=== PATIENT | male | born 1985 | race Hispanic/Latino ===

== ENCOUNTER 2018-07-06 05:17 | Emergency (ER) | payer OTHER ==
[2018-07-06 05:36] VITALS: TEMP 96.4; O2SAT 98
--- NOTE | 2018-07-06 06:44 | ED PDOC ---
HPI: Wound Care - HPI Time Seen by Provider: 07/06/18 05:25 Chief Complaint (Nursing): ENT Problem Chief Complaint (Provider): Wound Care History Per: Patient Exam Limitations: no limitations Onset/Duration Of Symptoms: Days Current Symptoms Are (Timing): Still Present Additional History Per: Family () Additional Complaint(s): 32 year old male presents to the ED for an evaluation of blood clot in the right nostril onset yesterday. Patient had papillomas removed and there is a straw placed in the nostril. He had an appointment to follow up with the surgeon. Also reports of discomfort prompting for an ED visit. Otherwise denies, chest pain, fever, chills or cough. PMD: Non [facility] Provider Past Medical History Reviewed: Historical Data, Nursing Documentation, Vital Signs Vital Signs: Last Vital Signs Temp 96.4 F L 07/06/18 05:31 Pulse 100 H 07/06/18 05:31 Resp 18 07/06/18 05:31 BP 162/100 H 07/06/18 05:31 Pulse Ox 98 07/06/18 05:31 - Medical History PMH: No Chronic Diseases - Surgical History Other surgeries: nasal surgery to remove papillomas on 07/02/2018 - Family History Family History: States: Unknown Family Hx - Social History Current smoker - smoking cessation education provided: No Alcohol: Social Drugs: Denies - Allergies Allergies/Adverse Reactions: Allergies Allergy/AdvReac Type Severity Reaction Status Date / Time No Known Allergies Allergy Verified 07/06/18 05:31 Review of Systems ROS Statement: Except As Marked, All Systems Reviewed And Found Negative Constitutional: Negative for: Fever, Chills ENT: Positive for: Nose Discharge Respiratory: Negative for: Cough, Shortness of Breath Physical Exam - Physical Exam Appears: Positive for: Well, Non-toxic, No Acute Distress Head Exam: Positive for: ATRAUMATIC, NORMAL INSPECTION, NORMOCEPHALIC Skin: Positive for: Normal Color, Warm, Dry ENT: Positive for: Nasal Congestion. Negative for: Normal ENT Inspection (pt wiht large clot exuding from the left nostril. no active bleeding. slight ooze from the clot itself. no acting dc form the wound.), Tonsillar Swelling Neck: Positive for: Normal Cardiovascular/Chest: Positive for: Regular Rate, Rhythm Respiratory: Positive for: Normal Breath Sounds Gastrointestinal/Abdominal: Positive for: Normal Exam Back: Positive for: Normal Inspection Extremity: Positive for: Normal ROM Neurologic/Psych: Positive for: Alert, Oriented - ECG O2 Sat by Pulse Oximetry: 98 (RA) Pulse Ox Interpretation: Normal Medical Decision Making Medical Decision Making: Time: [address] Hamilton, ENT at [facility]. He states there is a small ooze in right nostril which he noticed when video calling with the patient and he watched the patient's video for an half hour. He said to place a gauze and follow-up at his office. and dr hamilton believes pt can wait til tomorrow when he will see them and clean out the clot. Patient's also spoke with Dr. Hamilton at [facility] who agreed to meet with the patient at [place] [facility]. Patient refused blood work when offered CBC w/ Differential Scribe Attestation: Documented by Jada Bah, acting as a scribe for Kumar Petersen MD Provider Scribe Attestation: All medical record entries made by the Scribe were at my direction and personally dictated by me. I have reviewed the chart and agree that the record accurately reflects my personal performance of the history, physical exam, medical decision making, and the department course for this patient. I have also personally directed, reviewed, and agree with the discharge instructions and disposition. Disposition - Clinical Impression Clinical Impression: Encounter for wound care - Patient ED Disposition Is Patient to be Admitted: No Counseled Patient/Family Regarding: Studies Performed, Diagnosis, Need For Followup - Disposition Disposition: Routine/Home Disposition Time: 06:30 Condition: IMPROVED Additional Instructions: go to [place] where you will meet Dr Hamilton who did your procedure who will clean out the nostril return with any worsening or concerning symptoms Instructions: Wound Care (DC) Forms: [employer] (Thai)
[2018-07-06 07:18] VITALS: BP 121/60; PULSE 72; RESP 20
== END 2018-07-06 06:30 | disposition home or self-care (01) ==
LOC: H.ER 05:17
DX: Z48.00 Encounter for change or removal of nonsurgical wound dressing (principal)